=== PATIENT | female | born 1975 | race Two or more races ===

== ENCOUNTER 2024-04-22 13:28 | Emergency (ER) | payer MEDICAID ==
[~2024-04-22] VITALS: Ht 167.6 cm; Wt 72.6 kg
[2024-04-22 13:28] VITALS: BP 109/60; TEMP 98.3
[2024-04-22] MEDS ORDERED: PRED50TA PO (13:49)
[2024-04-22] MEDS ORDERED: FAMOTIDINE (20 MG) 20 MG TABLET ONE (14:00)
[2024-04-22] MEDS ORDERED: predniSONE 20 MG TABLET ONE (14:00)
[2024-04-22] MEDS: predniSONE 10 MG TABLET PO ONE (14:06)
[2024-04-22] MEDS: FAMOTIDINE (20 MG) 20 MG TABLET PO ONE (14:06)
[2024-04-22 14:25] VITALS: O2SAT 99
== END 2024-04-22 14:59 | disposition home or self-care (01) ==
LOC: ER 13:30
DX: T78.40XA Allergy, unspecified, initial encounter (principal); R21 Rash and other nonspecific skin eruption; Z79.52 Long term (current) use of systemic steroids; X58.XXXA Exposure to other specified factors, initial encounter
CPT/HCPCS: 99283; J7512 ×2